=== PATIENT | male | born 1995 | race Caucasian/White ===

== ENCOUNTER 2023-11-01 20:00 | Emergency (ER) | payer OTHER, SELFPAY ==
[2023-11-01 20:07] VITALS: BP 129/88; PULSE 138; TEMP 36.9; O2SAT 96; BMI 30.5
--- NOTE | 2023-11-01 20:12 | ECG_ITS ---
[facility] Test Date: 2023-11-01 Pat Name: DELMAR [facility]ANT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
--- NOTE | 2023-11-01 20:18 | ED_ITS ---
HPI - Allergic Reaction General Chief complaint: Allergic Reaction Stated complaint: allergic reactions mangos/was seen at [facility] [place] Time Seen by Provider: 11/01/23 20:07 Source: patient Mode of arrival: walk-in Limitations: no limitations History of Present Illness HPI narrative: 28-year-old male presents for an allergic reaction to mangoes. He came into contact with mangoes about noon today. He is known to be allergic to mangoes. His girlfriend drank a genna smoothie, the patient did not drink it but he was in the same area. She developed symptoms and went to another hospital emergency department where they gave him some medications and he was discharged home on prednisone. His symptoms started coming back, specifically he feels like the left side of his tongue is swollen and he feels short of breath. He has not had a rash. He feels like his heart is racing. Related Data Home Medications ?Medication ?Instructions ?Recorded ?Confirmed ergocalciferol (vitamin D2) 1,250 1,250 mcg PO .weekly 11/01/23 11/01/23 mcg (50,000 unit) capsule quetiapine 100 mg tablet 100 mg PO DAILY 11/01/23 11/01/23 Allergies Allergy/AdvReac Type Severity Reaction Status Date / Time genna Allergy Swelling Verified 11/01/23 20:12 of Lip/Tongue/Throat Review of Systems ROS Narrative A ten point review of systems is negative except as noted above. Exam Narrative Exam Narrative: Nurses note and vital signs reviewed and patient is not hypoxic. General: The patient appears well and in no apparent distress. Patient is resting comfortably on cart. Skin: Warm, dry, no pallor noted. There is no rash noted. Head: Normocephalic, atraumatic Eye: Normal conjunctiva, no drainage Ears, Nose, Mouth, and Throat: oral mucosa is moist. Nares patent. Tongue is not visibly swollen. Uvula midline, no edema. No swelling in the pharynx. No exudate. He is handling his oral secretions well Cardiovascular: Regular Rate and Rhythm, tachycardia Respiratory: Patient is in no distress, no accessory muscle use, lungs are clear to auscultation, no wheezing, rales or rhonchi Back: non-tender GI: Soft and nontender Musculoskeletal: The patient has no evidence of calf tenderness, no pitting edema, symmetrical pulses noted bilaterally Neurological: A&O, normal speech Psychiatric: Cooperative Constitutional Vital Signs, click to edit/add: Last Vital Signs Temp 98.5 F 11/01/23 20:07 Pulse 138 H 11/01/23 20:07 Resp 20 11/01/23 20:07 BP 129/88 11/01/23 20:07 Pulse Ox 96 11/01/23 20:07 O2 Del Method Room Air 11/01/23 20:07 Course Vital Signs Vital signs: Vital Signs Temperature 98.5 F 11/01/23 20:07 Pulse Rate 138 H 11/01/23 20:07 Respiratory Rate 20 11/01/23 20:07 Blood Pressure 129/88 11/01/23 20:07 Pulse Oximetry 96 11/01/23 20:07 Oxygen Delivery Method Room Air 11/01/23 20:07 Temperature 98.5 F 11/01/23 20:07 Pulse Rate 138 H 11/01/23 20:07 Respiratory Rate 11/01/23 20:07 Blood Pressure 129/88 11/01/23 20:07 Pulse Oximetry 96 11/01/23 20:07 Oxygen Delivery Method Room Air 11/01/23 20:07 MDM - Allergic Reaction MDM Narrative Medical decision making narrative: The patient was given IV Solu-Medrol and Benadryl and IV fluids. His heart rate came down. He is able to be discharged home with improved symptoms. He was already prescribed prednisone today and he will take that medication as prescribed. Treatment diagnosis and follow-up were discussed with the patient. Differential Diagnosis Differential diagnosis: Likely allergic reaction, angioedema and urticaria ECG Data Attestation: I personally reviewed and interpreted this ECG as follows: (EKG on my interpretation shows sinus tachycardia with a rate of 132.) Discharge Plan Discharge Stand Alone Forms: Portal Instructions Chief Complaint: Allergic Reaction Clinical Impression: Allergic reaction Patient Disposition: Home, Self-Care Time of Disposition Decision: 21:48 Condition: Good Mode of Transportation: Private Vehicle Prescriptions / Home Meds: No Action ergocalciferol (vitamin D2) 1,250 mcg (50,000 unit) capsule 1,250 mcg PO .weekly Rx Instructions: Mondays quetiapine 100 mg tablet 100 mg PO DAILY Rx Instructions: HS Print Language: [place] Instructions: General Allergic Reaction (ED) Referrals: Physician,Non-Staff, MD [Physician] - 1 week
[2023-11-01 20:22] LABS: Basophils Percent Auto 0.1 % (0.2-2.0); Eosinophils Percent Auto 0.1 % (0.9-7.0); Hematocrit 48.3 % (42.0-54.0); Hemoglobin 16.1 g/dL (14.0-18.0); Immature Granulocytes Abs Auto 0.02 10^3/uL (0.00-0.03); Immature Granulocytes Pct Auto 0.2 % (0.0-0.5); Lymphocytes Absolute Auto 0.7 10^3/uL (1.2-3.8); Lymphocytes Percent Auto 6.5 % (20.5-60.0); Mean Corpuscular HGB Conc 33.3 g/dL (29.9-35.2); Mean Corpuscular Hemoglobin 30.1 pg (25.9-34.0); Mean Corpuscular Volume 90.4 fL (80.0-94.0); Mean Platelet Volume 11.6 fL (9.5-13.5); Monocytes Absolute Auto 0.1 10^3/uL (0.3-0.8); Monocytes Percent Auto 0.8 % (1.7-12.0); Neutrophils Absolute Auto 9.2 10^3/uL (1.4-6.5); Neutrophils Percent Auto 92.3 % (43.0-75.0); Platelet Count 197 10^3/uL (150-450); Red Blood Count 5.34 10^6/uL (4.70-6.10); Red Cell Distribution Width 13.1 % (11.0-15.0)
[2023-11-01 20:23] VITALS: BP 139/88; PULSE 127; O2SAT 94
[2023-11-01 20:30] VITALS: BP 123/76; PULSE 125; O2SAT 93
[2023-11-01 20:33] LABS: Anion Gap 17.8; BUN Creatinine Ratio 11.6; Calcium 9.5 mg/dL (8.5-10.1); Chloride 104 mmol/L (98-107); Estimated GFR (African America >60 (>=60); Estimated GFR (Non-African Ame 57 (>=60); Glucose 137 mg/dL (74-106); Potassium 3.8 mmol/L (3.5-5.1); Sodium 142 mmol/L (136-145)
[2023-11-01] MEDS: 0.9 % SODIUM CHLORIDE 1,000 ML 1000 ML IV (20:34)
[2023-11-01] MEDS: DIPHENHYDRAMINE HCL 50 MG/ML (1ML) VIAL IV (20:34)
[2023-11-01] MEDS: METHYLPREDNISOLONE SOD SUCC PF 125 MG/2 ML VIAL IVP (20:34)
[2023-11-01 21:00] VITALS: BP 123/77; PULSE 114; O2SAT 95
== END 2023-11-01 21:59 | disposition home or self-care (01) ==
PROVIDERS: Emergency Provider Emergency Medicine; PCP Nurse Practitioner Family
DX: T78.1XXA Other adverse food reactions, not elsewhere classified, initial encounter (principal); R22.0 Localized swelling, mass and lump, head; R06.02 Shortness of breath
CPT/HCPCS: 36415; 80048; 85025; 93005; 96374; 96375; 99284; J2919